=== PATIENT | male | born 1985 ===

== ENCOUNTER 2024-12-05 04:34 | Outpatient (CLI) | payer OTHER, SELFPAY | END 2024-12-05 04:35 | disposition home or self-care (01) | PROVIDERS: Referring Provider Nurse Practitioner Family; Visit Provider Nurse Practitioner Family | DX: R19.7 Diarrhea, unspecified (principal) | CPT/HCPCS: 36415; 82784; 83516 ==

== ENCOUNTER 2024-12-06 16:45 | Outpatient (REF) | payer OTHER, SELFPAY ==
[2024-12-06 12:54] LABS: EPI 027-NAP1-B1 PRESUMPTIVE NEGATIVE
[2024-12-07 13:18] LABS: Campylobacter PCR Negative (Negative); Shiga Toxin PCR Negative (Negative); Shigella/Enteroinvasive Ecoli Negative (Negative)
[2024-12-07 14:19] LABS: Helicobacter pylori Ag, Feces Negative (Negative)
[2024-12-10 22:03] LABS: Pancreatic Elastase, F >500 mcg/g
== END 2024-12-06 16:46 | disposition home or self-care (01) ==
LOC: LBN 16:45
PROVIDERS: Visit Provider Nurse Practitioner Family
DX: R19.7 Diarrhea, unspecified (principal)
CPT/HCPCS: 87015; 87269; 87272; 87338; 87505; 82656; 83993

== ENCOUNTER 2024-12-18 10:13 | Outpatient (REF) | payer OTHER, SELFPAY | END 2024-12-18 10:14 | disposition home or self-care (01) | LOC: LBN 10:13 | PROVIDERS: Visit Provider Nurse Practitioner Family | DX: R19.7 Diarrhea, unspecified (principal) | CPT/HCPCS: 83993 ==